=== PATIENT | female | born 2000 | race Caucasian/White ===

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

== ENCOUNTER 2022-08-11 08:44 | Outpatient (CLI) | payer BC, SELFPAY ==
--- NOTE | 2022-09-12 08:21 | WPDHOLTEREM ---
Holter/Event Monitor Holter/Event Monitor Date of procedure: 08/11/22 Holter/Event Procedure: Event Monitor Indications: Palpitations Conclusion: 1. 25 days event monitor between 08/11/22-09/09/22. 2. Underlying rhythm is sinus rhythm. HR range 45-175 bpm; average HR 73 bpm. HR at 175 bpm was on 08/30/22 at 20:42. 3. No premature supraventricular complexes. No supraventricular tachycardia. 4. No premature ventricular complexes. No ventricular tachycardia. 5. No significant pauses greater than 2 seconds. 6. Patient reports 1 episode of symptom other than listed which demonstrate sinus rhythm at 82 bpm.
== END 2022-08-11 08:45 | disposition home or self-care (01) ==
LOC: CHSCARD 08:49
PROVIDERS: PCP Internal Medicine; Visit Provider Internal Medicine
DX: R00.2 Palpitations (principal)
CPT/HCPCS: 93270

== ENCOUNTER 2022-08-15 13:25 | Outpatient (CLI) | payer BC, SELFPAY ==
--- NOTE | 2022-08-15 14:15 | ECHO_ITS ---
Patient Info Name: Vee Billings Age: 22 years : 2000 Gender: Female Ht: 70 in Wt: 170 lbs BSA: 1.96 m2 HR: 87 bpm BP: 110 / 58 mmHg Technical Quality: Good Exam Date: 08/15/2022 2:23 PM Exam Location: [facility] Patient Status: Outpatient Admit Date: 08/15/2022 Staff Ordering Physician: Kulwant Cole MD Hr Administrator: Chris Vegas, ISAEL, RT Attending Provider: Kulwant Cole MD Referring Physician: Douglas COLLINS; Exam Type: CA echo doppler color flow Study Info Indications R00.2 - Palpitations Complete two-dimensional, color flow and Doppler transthoracic echocardiogram is performed. Strain analysis performed. Summary 1. Complete two-dimensional, color flow and Doppler transthoracic echocardiogram is performed. 2. Left ventricular chamber dimension is normal. 3. Left ventricular systolic function is normal, estimated at 60-65%. 4. The left ventricular diastolic function is normal. 5. E/e' 5 is not elevated. 6. Global longitudinal strain is normal at -18.2%. 7. There is trace tricuspid valve regurgitation. Left Ventricle E/e' 5 is not elevated. Global longitudinal strain is normal at -18.2%. Left ventricular chamber dimension is normal. Left ventricular systolic function is normal, estimated at 60-65%. The left ventricular diastolic function is normal. Right Ventricle Right ventricular systolic function is normal and with normal TAPSE 2.1 cm. Right ventricular chamber dimension is normal. Left Atria Left atrial chamber dimension is normal. Right Atria Right atrial chamber dimension is normal. Aortic Valve The aortic valve is trileaflet. There is no aortic valve stenosis. There is no aortic valve regurgitation. Pulmonic Valve There is no pulmonic regurgitation. Mitral Valve There is no mitral valve stenosis. There is no mitral valve regurgitation. Tricuspid Valve There is trace tricuspid valve regurgitation. RVSP is not calculated due to an inadequate TR jet. Pericardium/Pleural There is no pericardial effusion. Inferior Vena Cava Normal inferior vena cava with >50% collapse upon inspiration consistent with normal right atrial pressure, 5 mmHg. Aorta The aortic root size at the sinus of Valsalva is normal. Left Ventricular Outflow Tract Name Value Normal LVOT 2D LVOT Diameter 2.0 cm LVOT Doppler LVOT Peak Velocity 116 cm/s LVOT Peak Gradient 5 mmHg LVOT Mean Gradient 2 mmHg LVOT VTI 20 cm LVOT VTI/AV VTI Ratio 1.1 LVOT Stroke Volume 61 ml Mitral Valve Name Value Normal MV Doppler MV Decel Ashe 439 cm/s2 MV PHT 55 ms MV Area (PHT)
== END 2022-08-15 13:26 | disposition home or self-care (01) ==
LOC: CHSIMG 13:26
PROVIDERS: PCP Internal Medicine; Visit Provider Internal Medicine
DX: R00.2 Palpitations (principal)
CPT/HCPCS: 93306

== ENCOUNTER 2022-08-29 11:27 | Outpatient (CLI) | payer BC, SELFPAY ==
[2022-08-31 16:09] LABS: NIL 0.01 IU/mL; Quantiferon TB Plus, 1T NEGATIVE (NEGATIVE)
== END 2022-08-29 11:28 | disposition home or self-care (01) ==
LOC: CHSLAB 11:42
PROVIDERS: PCP Internal Medicine; Visit Provider Internal Medicine
DX: Z11.1 Encounter for screening for respiratory tuberculosis (principal)
CPT/HCPCS: 36415; 86480

== ENCOUNTER 2023-10-06 06:42 | Emergency (ER) | payer BC, SELFPAY ==
--- NOTE | ~2023-10-06 | US_ITS ---
EXAMINATION: US right upper quadrant DATE: 10/06/2023 07:52 INDICATION: Right upper quadrant abdominal pain. TECHNIQUE: Multiple grayscale and Doppler ultrasound images of the abdomen were obtained. COMPARISON: None FINDINGS: The visualized portions of the head, body, and tail of the pancreas are normal. The liver i s normal without focal lesion. There is antegrade flow in main portal vein. The gallbladder is normal in size. No gallstones or gallbladder wall thickening. There is no sonographic Vegas sign. The comm on duct is normal and measures 3 mm. IMPRESSION: 1. Normal right upper quadrant ultrasound. Reviewed, dictated and finalized at location A.
--- NOTE | ~2023-10-06 | XR_ITS ---
EXAMINATION: XR chest 1V DATE: 10/06/2023 07:50 INDICATION: Chest pain. Epigastric abdominal pain. TECHNIQUE: A single frontal view of the chest was obtained. COMPARISON: None. FINDINGS: There is no pneumonia, pleural effusion, or pneumothorax. The heart size is normal. IMPRESSION: 1. No acute cardiopulmonary disease. Reviewed, dictated and finalized at location A.
--- NOTE | ~2023-10-06 | CT_ITS ---
EXAMINATION: CT abdomen pelvis w con DATE: 10/06/2023 08:42 INDICATION: Epigastric abdominal pain TECHNIQUE: Computed tomography (CT) of the abdomen and pelvis was performed with 100 mL Omnipaque-350 intravenous contrast. Automated exposure control and iterative reconstruction technique were employe d. The dose-length product was 316.00 mGy-cm. COMPARISON: None FINDINGS: Lung bases are clear. Heart size is normal. No pericardial or pleural effusion. Mild focal hepatic st eatosis along the ligamentum teres. Gallbladder, spleen, pancreas, bilateral adrenal glands and kidne ys are normal. The appendix is not visualized. There is a linear density along the tip the cecum sugg esting the suture line related to prior appendectomy. No pericecal inflammatory change to suggest acu te appendicitis. Bladder, anteverted uterus and bilateral adnexa are unremarkable. No free intraperit montilla gas or fluid. No pathologically enlarged abdominal or pelvic lymphadenopathy. Mild lower lumbar spondylosis with disc bulges at L4-5 and L5-S1, the former along some associated hypertrophy of liga mentum flavum results in at least moderate central canal stenosis at L4-L5. IMPRESSION: 1. No acute intra-abdominal/pelvic process. Reviewed, dictated and finalized at location B.
--- NOTE | 2023-10-06 06:49 | ECG_ITS ---
SEE SCANNED COPY FOR CONFIRMED REPORT MTDD
[2023-10-06 06:50] VITALS: BP 117/85; PULSE 74; RESP 13; TEMP 36.7; O2SAT 100
[2023-10-06 06:57] VITALS: O2SAT 100
[2023-10-06 07:01] VITALS: PULSE 69
[2023-10-06 07:12] LABS: Basophils Percent Auto 0.4 % (0.2-1.2); Eosinophils Absolute Auto 0.1 K/mm3 (0-0.3); Hematocrit 44.6 % (37.0-47.0); Hemoglobin 14.9 g/dL (12.0-15.0); Immature Granulocyte Absolute 0.02 K/mm3 (0.00-0.031); Immature Granulocyte Percent A 0.8 % (0-0.5); Lymphocytes Absolute Auto 1.12 K/mm3 (0.9-3.2); Lymphocytes Percent Auto 44.4 % (18.3-44.2); Mean Corpuscular HGB Conc 33.4 g/dl (32-36); Mean Corpuscular Hemoglobin 28.2 pg (26-34); Mean Corpuscular Volume 84.5 fl (80-100); Mean Platelet Volume 8.4 fl (7.4-10.4); Monocytes Absolute Auto 0.2 K/mm3 (0.1-0.6); Monocytes Percent Auto 7.9 % (2.6-8.5); Neutrophils Absolute Auto 1.1 K/mm3 (1.3-6.7); Neutrophils Percent Auto 42.5 % (45.5-73.1); Platelet Count Result 326 k/mm3 (150-375); Red Blood Count 5.28 M/mm3 (4.2-5.4); White Blood Count 2.5 K/mm3 (4.5-10.0)
[2023-10-06 07:18] VITALS: BP 104/80; PULSE 75; RESP 18; O2SAT 100
[2023-10-06 07:22] LABS: Alanine Aminotransferase 30 U/L (6-35); Alkaline Phosphatase 65 U/L (38-126); Anion Gap 10 mmol/L (4-12); Aspartate Amino Transferase 30 U/L (14-36); Blood Urea Nitrogen 18 mg/dL (7-17); Calcium 10.1 mg/dL (8.4-10.2); Carbon Dioxide 27 mmol/L (22-30); Chloride 104 mmol/L (98-107); Estimated CRCL calculation 88 ml/min; Estimated Glomerular Filt Rate > 60; Glucose 95 mg/dL (65-110); Lipase 72 U/L (23-300); Potassium 3.9 mmol/L (3.4-5.0); Sodium 141 mmol/L (137-145)
[2023-10-06 07:23] LABS: Partial Thromboplastin Time 30.4 Seconds (22.3-36.8); Prothrombin Time 13.9 Seconds (11.1-14.7)
--- NOTE | 2023-10-06 07:30 | ED.GENADULT ---
HPI - General Adult General Chief complaint: Chest Pain Stated complaint: chest pain into back since Monday evening Time Seen by Provider: 10/06/23 07:03 History of Present Illness HPI narrative: Patient is a 23-year-old female who presents ER with abdominal pain. Ongoing for the last 5 days. She has pain when she eats. It is sharp has began radiating into her back. It is also on the right side. No history of gallstones. She reports that occurs with drinking water as well. She has tried viscous lidocaine as well as some peppermint oil. There was concern that she could have esophagitis or reflux from taking doxycycline with only water. She is not vomiting. She reports fatigue and shortness of breath on exertion. No hemoptysis or cough. No hormone usage. No recent surgery immobilization. sometimes she feels like food gets stuck but she does not have any vomiting/waterbrash. Related Data Home Medications Medication Instructions Recorded Confirmed norgestimate 0.25 mg-ethinyl 1 tablet PO DAILY 10/06/20 06/28/21 estradiol 35 mcg tablet (Estarylla) Allergies Allergy/AdvReac Type Severity Reaction Status Date / Time No Known Allergies Allergy Verified 10/06/23 06:58 Review of Systems Review of Systems: All systems reviewed & are unremarkable except as noted in HPI and below Constitutional: Constitutional: Reports no additional constitutional complaints ENT: Reports system reviewed and no additional complaints, except as documented Cardiovascular: Cardiovascular: Reports no additional cardiovascular complaints Respiratory: Respiratory: Reports no additional respiratory complaints Gastrointestinal: Gastrointestinal: Reports abdominal pain, Denies diarrhea, Denies nausea and Denies vomiting Genitourinary: Genitourinary: Reports no additional female genitourinary complaints [facility] Past Medical History Medical History Left ankle sprain Surgical History Surgical History History of appendectomy Social History Social History Smoking status: Never smoker Exam Narrative: GENERAL: Well-appearing, well-nourished, and in no acute distress. HEAD: Normocephalic, atraumatic. ENT: Mucous membranes moist. CHEST: Clear to auscultation. No respiratory distress. HEART: Regular rate and rhythm. Normal peripheral pulses. ABDOMEN: Soft, nontender, nondistended. EXTREMITIES: Normal range of motion. No edema. SKIN: Warm, dry, no rash. NEURO: Alert and oriented x3. PSYCH: Normal mood and affect. Course Course Emergency Course: Unremarkable evaluation. Nonspecific low white blood cell count. Patient given Protonix. Suspect esophagitis / gastritis. Will start on b.i.d. PPI. Vital Signs Vital signs: Vital Signs Temperature 98.1 F 10/06/23 06:50 Pulse Rate 74 10/06/23 06:50 Respiratory Rate 13 10/06/23 06:50 Blood Pressure 117/85 10/06/23 06:50 Pulse Oximetry 100 10/06/23 06:50 Oxygen Delivery Room Air 10/06/23 06:50 Temperature 98.1 F 10/06/23 06:50 Pulse Rate 64 10/06/23 09:24 Respiratory Rate 16 10/06/23 09:24 Blood Pressure 113/49 L 10/06/23 09:24 Pulse Oximetry 100 10/06/23 09:24 Oxygen Delivery Room Air 10/06/23 06:57 Medical Decision Making Vital Signs Vital Signs: Vital Signs Temperature 98.1 F 10/06/23 06:50 Pulse Rate 74 10/06/23 06:50 Respiratory Rate 13 10/06/23 06:50 Blood Pressure 117/85 10/06/23 06:50 Pulse Oximetry 100 10/06/23 06:50 Oxygen Delivery Room Air 10/06/23 06:50 Temperature 98.1 F 10/06/23 06:50 Pulse Rate 64 10/06/23 09:24 Respiratory Rate 16 10/06/23 09:24 Blood Pressure 113/49 L 10/06/23 09:24 Pulse Oximetry 100 10/06/23 09:24 Oxygen Delivery Room Air 10/06/23 06:57 Lab Data 10/06/23 06:59
[2023-10-06 07:34] LABS: Troponin I < 0.012 ng/mL (0.000-0.034)
[2023-10-06 07:58] LABS: Monoscreen Negative (Negative); Negative Monotest Control Negative (Negative); Positive Monotest Control Positive (Positive)
[2023-10-06 08:16] VITALS: BP 103/69; PULSE 78; RESP 17; O2SAT 99
[2023-10-06 09:24] VITALS: BP 113/49; PULSE 64; RESP 16; O2SAT 100
[2023-10-06] MEDS: PANTOPRAZOLE SODIUM IV 40 MG VIAL IV PUSH (09:52)
== END 2023-10-06 09:50 | disposition home or self-care (01) ==
PROVIDERS: Emergency Provider Emergency Medicine; PCP Internal Medicine
DX: K20.90 Esophagitis, unspecified without bleeding (principal); R94.31 Abnormal electrocardiogram [ECG] [EKG]
CPT/HCPCS: 36415; 71045; 74177; 74220; 76705; 80053; 81025; 83690; 84484; 85025; 85610; 85730; 86308; 93005; 96374; 99284; C9113; Q9967

== ENCOUNTER 2023-10-06 12:57 | Outpatient (CLI) | payer BC, SELFPAY ==
--- NOTE | ~2023-10-06 | XR_ITS ---
EXAMINATION: XR barium swallow DATE: 10/06/2023 13:35 INDICATION: Dysphagia. Acute epigastric pain. TECHNIQUE: The patient drank thick barium, gas-producing crystals, and thin barium. Fluoroscopy of th e hypopharynx and esophagus was performed. Fluoroscopy exposure time was 0.3 minutes. The total numbe r of images was 213. The dose-area product was 0.5 Gy-cm^2. COMPARISON: CT abdomen and pelvis 10/06/2023 FINDINGS: There is no mass or stricture of the esophagus. Esophageal motility is normal. There is no hiatal hernia. IMPRESSION: 1. Normal esophagram. Reviewed, dictated and finalized at location A. IMPRESSION: 1. Normal esophagram.
== END 2023-10-06 12:58 | disposition home or self-care (01) ==
LOC: ANHIMG 12:59
PROVIDERS: PCP Internal Medicine; Visit Provider Internal Medicine
DX: R13.10 Dysphagia, unspecified (principal)
CPT/HCPCS: 74220